=== PATIENT | female | born 2000 | race Caucasian/White ===

== ENCOUNTER 2024-11-30 15:56 | Emergency (ER) | payer OTHER, SELFPAY ==
--- OUTSIDE RECORDS SUMMARY | 2024-11-30 15:58 | XMS_ITS | Clinical Summary ---
Author Organization [facility] Address [address] [address] Care Team Providers Care Preschool Teacher'S Assistant Name Role Phone Unavailable Primary Care Provider Unavailabl e Source Comments You are receiving this document as you are listed as the primary care provider,follow-up provider, or the patient has been referred to you for consultation.This is in compliance with the Medicare andMedicaid EHR Incentive Program,which states Providers who transition their patient to another setting of careor provider of care or refers their patient to another provider of care shouldprovide summary care record for each transition of care or referral. [facility] Allergies No known active allergies Medications Medication Sig Dispensed Refills Start Date End Date Status triamcinolone acetonide (KENALOG) 0.1 % cream SMARTSI Application Topical 2-3 Times Daily 07/26/2024 Active amoxicillin (AMOXIL) 500 MG capsule Take 1 Capsule (500 mg) by mouth three times a day. 07/21/2024 Active methylPREDNISolone (MEDROL 21 TABLET DOSEPACK) 4 MG tablet Take 1 Tablet (4 mg) by mouth. 07/21/2024 Active ibuprofen (MOTRIN) 600 MG tablet Take 1 Tablet (600 mg) by mouth. 07/21/2024 Active Social History Tobacco Use Types Packs/Day Years Used Date Smoking Tobacco: Never Sex and Gender Information Value Date Recorded Sex Assigned at Not on file Gender Identity Not on file Sexual Orientation Not on file Last Filed Vital Signs Vital Sign Reading Time Taken Comments Blood Pressure - - Pulse - - Temperature 36.3 C (97.3 F) 07/10/2023 8:29 AM CDT Respiratory Rate - - Oxygen Saturation - - Inhaled Oxygen Concentration - - Weight 50.8 kg (112 lb) 07/10/2023 8:29 AM CDT Height 162.6 cm (5' 4) 07/10/2023 8:29 AM CDT Body Mass Index 19.22 07/10/2023 8:29 AM CDT Plan of Treatment Health Maintenance Due Date Last Done Comments Cervical Cancer Screening Due 2000 Chlamydia 2000 Hep C Screening (Preventive Services) 2000 HPV Vaccine (1 - 3-dose series) 2015 HIV Screening (Preventive Services) 2016 Adult Preventive Visit 2018 HepB (1) 2019 DTaP/Tdap/Td (7 - Tdap) 05/30/2023 05/30/20 13, 02/15/2006, 05/05/2002, Additional history exists COVID-19 Vaccine (2023- season) 2024 Influenza (#1) 2024 Zoster/Shingles (1 of 2) 2050 Pneumococcal Aged Out 07/01/2001, 03/23, 02/18/2001 No longer eligible based on patient's age to complete this topic Hib Completed 12/30/2001, 03/23, 02/18/2001 IPV (Polio) Completed 02/15/2006, 06/22, 04/15/2001, Additional history exists HepA Aged Out No longer eligi ble based on patient's age to complete this topic MCV4 Aged Out No longer eligi ble based on patient's age to complete this topic
--- OUTSIDE RECORDS SUMMARY | 2024-11-30 15:58 | XMS_ITS | Clinical Summary ---
Author Organization [facility] Address [address] [place] [address] Care Team Providers Care Lan Manager Name Role Phone Nena Strauss CNP Primary Care Provider [phone] Nena Strauss CNP Unavailable [phone] Allergies No known active allergies Medications polymixin b-trimethoprim (POLYTRIM) 65087-6.1 UNIT/ML-% ophthalmic solutionIndicati ons:Skin infection,Eye infection, unspecified laterality Place 1-2 drops into the right eye every 4 hours. 10 mL 4 Active bacitracin 500 UNIT/GM external ointmentIndicati ons:Skin infection Apply topically 2 times daily. 30 g 1 4 Active amoxicillin-clav ulanate (AUGMENTIN) 875-125 MG tablet take one tablet by mouth twice daily with food 4 Active predniSONE (DELTASONE) 10 MG tabletIndication s:Rash Take 3 tabs by mouth daily x 3 days, then 2 tabs daily x 3 days, then 1 tab daily x 3 days, then 1/2 tab daily x 3 days. 20 tablet 4 Active Active Problems No known active problems Encounters Date Type Department Care Team Description 09/04/2024 MyC Medical Advice [facility] [address] [place] [id number] Nena Strauss CNP MyChart Communication from Last 3 Months Immunizations Name Administration Dates Next Due Comvax (HIB/HepB) 12/30/2001,04/15/2001,02/19/20 01 DTAP (<7y) 02/15/2006,05/05/2002,07/01/2001 ,02/18/2001 Hepatitis B, Peds 12/30/2001,04/15/2001,02/19/20 01 Historical DTP/aP 04/15/2001 MMR 02/15/2006,05/05/2002 Pneumococcal (PCV 7) 07/01/2001,04/15/2001,02/18 Polio, Unspecified 02/15/2006,07/01/2001, 001,02/18/2001 TDAP (Adacel,Boostrix) 05/30/2013 Varicella 02/15/2006,12/30/2001 Social History Tobacco Use Types Packs/Day Years Used Date Smoking Tobacco: Every Day Other Vaping Device Smokeless Tobacco: Never Tobacco Cessation:Ready to Q uit: Not Asked; Counseling Given: Not Answered Comments:vape Alcohol Use Standard Drinks/Week Comments Yes 0 (1 standard drink = 0.6 oz pur e alcohol) PHQ-2 Answer Date Recorded PHQ-2 Score 2 08/01/2024 Adolescent Education Answer Date Record ed Getting School Help Needed Not on file 07/14 Interpersonal Safety Answer Date Record ed Do you feel physically and e motionally safe where you currently live? Yes 08/01/2024 Within the past 12 months, h ave you been hit, slapped, kicked or otherwise physically hurt by someone? No 08/01/2024 Within the past 12 months, h ave you been humiliated or emotionally abused in other ways by your partner or ex-partner? No 08/01/2024 Comments No Sex and Gender Information Value Date Recorded Sex Assigned at Not on file Legal Sex Female 12:26 PM CDT Gender Identity Not on file Sexual Orientation Not on file Last Filed Vital Signs Vital Sign Reading Time Taken Comments Blood Pressure 131/88 08/20/2024 2:17 PM CDT Pulse 93 08/20/2024 2:17 PM CDT Temperature 36.4 C (97.6 F) 08/20/2024 2:17 PM CDT Respiratory Rate 16 08/20/2024 2:17 PM CDT Oxygen Saturation 100% 08/20/2024 2:17 PM CDT Inhaled Oxygen Concentration - - Weight 49.4 kg (109 lb) 08/20/2024 2:17 PM CDT Height 165.1 cm (5' 5) 08/20/2024 2:17 PM CDT Body Mass Index 18.14 08/20/2024 2:17 PM CDT Plan of Treatment Health Maintenance Due Date Last Done Comments ADVANCE CARE PLANNING 2000 HIV SCREENING 2015 HPV IMMUNIZATION (1 - 3-dose series) 2015 MENINGITIS B IMMUNIZATION (1 of 2 - Standard) 2016 HEPATITIS C SCREENING 2018 Pneumococcal Vaccine: Pediatrics (0 to 5 Years) and At-Risk Patients (6 to 49 Years) (1 of 2 - PCV) 2019 07/01/2001, 04/15/2001, 02/18/2001 PAP 2021 ANNUAL REVIEW OF HM ORDERS 04/05/2022 04/05/2021 YEARLY PREVENTIVE VISIT 04/05/2022 04/05/2021 DTAP/TDAP/TD IMMUNIZATION (7 - Td or Tdap) 05/30/2023 05/30/2013, 02/15/2006, 05/05/2002, Additional history exists COVID-19 Vaccine ( - season) 2024 INFLUENZA VACCINE (#1) 2024 PHQ-2 (once per calendar year) 2024 08/01/2024, 04/05/2021 NICOTINE/TOBACCO CESSATION COUNSELING Q 1 YR 08/01/2025 08/01/2024 ZOSTER IMMUNIZATION (1 of 2) 2050 RSV VACCINE (1 - 1-dose 75+ series) 2075 HEPATITIS B IMMUNIZATION Completed 002, 12/30/2001, 04/15/2001, Additional history exists MENINGITIS IMMUNIZATION Aged Out No l onger eligible based on patient's age to complete this topic RSV MONOCLONAL ANTIBODY Aged Out No l onger eligible based on patient's age to complete this topic Insurance [facility] Care Teams Lan Manager Relationship Specialty Start Date End Date Nena Strauss CNP [address] [place] [address] PCP - General Internal Medicine 08/04/24 Nena Strauss CNP [address] [place] [address] Assigned PCP 08/13/24
--- OUTSIDE RECORDS SUMMARY | 2024-11-30 15:58 | XMS_ITS | Clinical Summary ---
Author Organization [facility] Address [place], [place] [address] Care Team Providers Care Disbursement Clerk Name Role Phone Pcp, No Primary Care Provider Unavailabl e Allergies No known active allergies Medications CHEWABLE MULTI VITAMIN TAB one tab per day 0 6 Active methylPREDNISol one (MEDROL DOSEPAK) 4 mg tablet 4 MG Tablet Therapy Pack, USE DIRECTED ON PACK* 4 Active ibuprofen (ADVIL; MOTRIN) 600 mg tablet Take one tablet by mouth every 6 to 8 hours as needed* 4 Active amoxicillin 500 mg capsule TAKE ONE CAPSULE BY MOUTH THREE TIMES DAILY FOR 5 DAYS* 4 Active dexAMETHasone 4 mg tabletIndicatio ns:Dermatitis Take 1 tablet by mouth twice daily after food 2 Tablet 4 Active triamcinolone (ARISTOCORT; KENALOG) 0.1 % creamIndication s:Dermatitis Apply topically to affected area(s) four times daily. On the neck rash for up to 10 days 28.4 g 1 4 Active triamcinolone (ARISTOCORT; KENALOG) 0.1 % cream Apply to affected area of neck rash four times daily for up to 10 days 30 g 1 07/26/2024 2:00 PM CDT 4 Active Immunizations Name Administration Dates Next Due DTP-HIB 12/30/2001,04/15/2001,02/18/2001 DTaP 05/05/2002, 1,04/15/2001,2000 Hepatitis B (Peds) 12/30/2001,04/15/2001, 001 MMR 05/05/2002 Oral Polio Vaccine 07/01/2001,04/15/2001, 001 Pneumococcal conj 7-Valent ( Prevnar 7) 07/01/2001,04/15/2001,02/18/2001 Family History Medical History Relation Name Comments Genetic Other MGF HTN~MGM willie ast ca Relation Name Status Comments Other Social History Tobacco Use Types Packs/Day Years Used Date Smoking Tobacco: Never Smokeless Tobacco: Never Tobacco Cessation:Counseling Given: Not Answered Alcohol Use Standard Drinks/Week Comments Yes 0 (1 standard drink = 0.6 oz pur e alcohol) social Social Connections Answer Date Recorded Do you often feel lonely or isolated from those around you? 0 07/25/2024 Financial Resource Strain Answer Date R ecorded Difficulty of Paying Living Expenses 2 11/22/2024 Difficulty of Paying Living Expenses 1 11/22/2024 Food Insecurity Answer Date Recorded Do you worry your food will run out before you are able to buy more? 1 07/25/2024 Transportation Needs Answer Date Record ed Does lack of transportation keep you from medica l appointments? 1 07/25/2024 Does lack of transportation keep you from work, meetings or getting things that you need? 1 07/25/2024 Housing Stability Answer Date Recorded What is your housing situation today? 1 07/25/2024 Utilities Answer Date Recorded Do you have trouble paying f or utilities (for example, heat, electricity, water, phone)? 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 Gender Identity Not on file Sexual Orientation Not on file Obstetrics History Last Filed Vital Signs Vital Sign Reading Time Taken Comments Blood Pressure 139/90 07/25/2024 2:09 PM CDT Pulse 68 07/25/2024 2:09 PM CDT Temperature 36.9 C (98.4 F) 07/25/2024 2:09 PM CDT Respiratory Rate 14 07/25/2024 2:09 PM CDT Oxygen Saturation 95% 07/25/2024 2:09 PM CDT Inhaled Oxygen Concentration - - Weight 50.8 kg (112 lb) 07/07/2024 12:47 PM CDT Height 113.7 cm (3' 8.75) 08/27/2006 4:15 PM CS T Body Mass Index - - Plan of Treatment Health Maintenance Due Date Last Done Comments Tdap 2011 Depression screening for age 12+ 2012 HIV for age 15-65 2015 HPV series for age 9-26 (1 - 3-dose series) 2015 Chlamydia for age 16-24 2016 BMI (ht and wt on same day) for age 18+ 2018 Hepatitis C screening for ag e 18-79 2018 Tetanus booster 2020 Pap test for age 21-65 2021 COVID-19 vaccine series (2023- season) 2024 Influenza for age 9-49 06/22/2024 Pneumococcal series for age 6-49 Aged Out 07/01/2001, 04/15/2001, 02/18/2001 No longer eligible based on patient's age to complete this topic Insurance [facility] Care Teams Disbursement Clerk Relationship Specialty Start Date End Date Pcp, No . PCP - General 11/22/16
[2024-11-30 16:02] VITALS: BP 125/90; PULSE 77; RESP 16; TEMP 36.5; O2SAT 99; BMI 19.1
--- NOTE | 2024-11-30 16:19 | ED.GENADULT ---
HPI - General Adult General Chief complaint: Eye Problems Stated complaint: both eyes issues Time Seen by Provider: 11/30/24 16:03 History of Present Illness HPI narrative: 23-year-old pleasant female who has had eye irritation over the last week. She saw an eye doctor this week thought maybe this was mild allergic type conjunctivitis. She really did not undergo any treatment. It has gotten worse it was on the right eye initially notes on the left eye. No new perfumes, detergents, cosmetics, other allergens or foods that she can identify. Since she got her wisdom teeth out July she has had a couple of skin rashes that look like impetigo or staph infection the patient denies fever chills she reports eye itching eye discomfort. Gross visual acuity is normal. Related Data Home Medications ?Medication ?Instructions ?Recorded ?Confirmed No Known Home Medications 11/30/24 11/30/24 Allergies Allergy/AdvReac Type Severity Reaction Status Date / Time No Known Drug Allergies Allergy Verified 11/30/24 16:06 Review of Systems Status of ROS: Reports: 6 or more systems reviewed and unremarkable except as noted in History and below PFSH PFS Social History Do you use any of these nicotine containing products: Vaping Products How often do you have a drink containing alcohol: 2-3 times a week AUDIT-C Alcohol total score: 3 Non-prescribed substance use: marijuana (any form) Exam Narrative: Exam Narrative: Objective: Patient's vital signs look with tomorrow normal limits She has allergic appearing conjunctivitis bilaterally she has got medial epicanthal mattering consistent with perhaps even a bacterial conjunctivitis. No vesicles noted around the eye no apparent herpetic lesions, patient has gross visual acuity is normal as mention. Const: Vital Signs, click to edit/add: Vital Signs - 24 hr 11/30/24 16:02 Temperature 97.7 F Pulse Rate [Left P ulse Oximeter] 77 Respiratory Rate 16 Blood Pressure [Ri ght Upper Arm] 125/90 H Pulse Oximetry 99 Oxygen Delivery Me thod Room Air Course Vital Signs Vital signs: Initial Vital Signs Temperature 97.7 F 11/30/24 16:02 Temperature Source Oral 11/30/24 16:02 Pulse Rate 77 11/30/24 16:02 Respiratory Rate 16 11/30/24 16:02 Blood Pressure 125/90 H 11/30/24 16:02 Blood Pressure Mean 101 11/30/24 16:02 Blood Pressure Position Sitting 11/30/24 16:02 Pulse Oximetry 99 11/30/24 16:02 Oxygen Delivery Method Room Air 11/30/24 16:02 Vital Signs Temperature 97.7 F 11/30/24 16:02 Pulse Rate 77 11/30/24 16:02 Respiratory Rate 16 11/30/24 16:02 Blood Pressure 125/90 H 11/30/24 16:02 Pulse Oximetry 99 11/30/24 16:02 Oxygen Delivery Method Room Air 11/30/24 16:02 Temperature 97.7 F 11/30/24 16:02 Pulse Rate 77 11/30/24 16:02 Respiratory Rate 16 11/30/24 16:02 Blood Pressure 125/90 H 11/30/24 16:02 Pulse Oximetry 99 11/30/24 16:02 Oxygen Delivery Method Room Air 11/30/24 16:02 Medical Decision Making MDM Narrative Medical decision making narrative: 23-year-old white female with allergic verses bacterial conjunctivitis. At this point I think given that it has mattering and treated as a bacterial infection will give her Keflex 500 q.i.d. orally and also give her Benadryl 25 mg t.i.d. over the next 3-5 days to take for the potential allergic component whenever wash her eyes out with warm water soaking 4 times a day, would have her think through her daily activities see there is any new allergens or exposures. Follow up with regular doctor next week this recheck, return to an eye doctor within next 48 hours not completely resolved. She was comfortable this will follow up as directed. Note written for off work for 3 days. Discharge Plan Discharge Clinical Impression: Conjunctivitis Patient Disposition: Home, Self-Care Condition: Stable Additional Instructions: Benadryl 25 mg 3 times a day for the next 3-5 days, Keflex 500 orally q.i.d. x7 days, moisturizing drops to the eyes such as saline eyedrops as needed p.r.n. warm washcloth to the eyes q.i.d.. Off work for 3 days, recheck with primary care in the next week. Activity Level: Light activity Discharge Diet: Regular Prescriptions: No Action No Known Home Medications Follow Up/Referrals: Fadia Moss PA-C [Physician Sand Cleaning Machine Operator] - Stand Alone Forms: Sosh Info Instructions
--- OUTSIDE RECORDS SUMMARY | 2024-11-30 16:25 | XMS_ITS | Clinical Summary ---
Author Organization [facility] Address [address], [place] [address] Care Team Providers Care Impact Hammer Operator Name Role Phone Unavailable Primary Care Provider [...] for each transition of care or referral. [facility] Allergies No known active allergies Medications [...]
--- OUTSIDE RECORDS SUMMARY | 2024-11-30 16:25 | XMS_ITS | Clinical Summary ---
Author Organization [facility] Address [address] [place] [address] Care Team Providers Care Purchasing Analyst Name Role Phone Nena Strauss CNP Primary Care Provider [phone] Nena Strauss CNP Unavailable [phone] Allergies No known active allergies Medications polymixin b-trimethoprim (POLYTRIM) 34431-2.1 UNIT/ML-% ophthalmic solutionIndicati ons:Skin infection,Eye infection, unspecified [...] Care Team Description 09/04/2024 MyC Medical Advice [facility] [address] [place] [id number] Nena Strauss CNP MyChart Communication from Last [...] 08/01/2024 ZOSTER IMMUNIZATION (1 of 2) 2050 HEPATITIS B IMMUNIZATION Completed 002, 12/30/2001, 04/15/2001, Additional history exists MENINGITIS IMMUNIZATION Aged Out No l onger eligible based on patient's age to complete this topic Insurance [facility] Care Teams Purchasing Analyst Relationship Specialty Start Date End Date Nena Strauss CNP [address] [place] [address] PCP - General Internal Medicine 08/04/24 Nena Strauss CNP [address] [place] [address] Assigned PCP 08/13/24
--- OUTSIDE RECORDS SUMMARY | 2024-11-30 16:25 | XMS_ITS | Clinical Summary ---
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 PCP - General 11/22/16
== END 2024-11-30 16:25 | disposition home or self-care (01) ==
LOC: ED 16:23
PROVIDERS: Emergency Provider Family Medicine
DX: H10.023 Other mucopurulent conjunctivitis, bilateral (principal)
CPT/HCPCS: 99283